=== PATIENT | female | born 1990 | race Caucasian/White ===

== ENCOUNTER 2018-10-05 12:39 | Emergency (ER) | payer MEDICARE, OTHER ==
[~2018-10-05] VITALS: Ht 154.9 cm; Wt 54.3 kg
[2018-10-05 13:17] VITALS: BP 153/94
[2018-10-05] MEDS ORDERED: PANT-47 PO (13:21)
[2018-10-05] MEDS ORDERED: SUCR1ORA12 PO (13:21)
== END 2018-10-05 13:43 | disposition home or self-care (01) ==
LOC: ER 12:42
DX: T18.128A Food in esophagus causing other injury, initial encounter (principal); Z79.899 Other long term (current) drug therapy; X58.XXXA Exposure to other specified factors, initial encounter; Y93.89 Activity, other specified; Y92.89 Other specified places as the place of occurrence of the external cause; Y99.8 Other external cause status
CPT/HCPCS: 99283

== ENCOUNTER 2019-11-18 12:54 | Outpatient (CLI) | payer MEDICARE ==
[~2019-11-18 12:54] MED LIST: PANT-47 PO; SUCR1ORA12 PO
== END 2019-11-18 23:59 | disposition home or self-care (01) ==
LOC: RAD 12:54
PROVIDERS: ATTEND Registered Nurse
DX: R56.9 Unspecified convulsions (principal)
CPT/HCPCS: 95816

== ENCOUNTER 2024-11-10 09:48 | Emergency (ER) | payer MEDICARE, OTHER ==
[~2024-11-10] VITALS: Ht 157.5 cm; Wt 55.4 kg
[2024-11-10] MEDS ORDERED: ketorolac trometh 15mg/ml vial 15 MG/ML ML IM ONE (10:15)
[2024-11-10] MEDS: ketorolac trometh 30MG/ML vial 30 MG/ML VIAL IM ONE (10:33)
[2024-11-10] MEDS ORDERED: METH-798 PO (11:06)
[2024-11-10 11:08] VITALS: BP 132/86; PULSE 78; RESP 16; TEMP 97.7; O2SAT 98
== END 2024-11-10 11:12 | disposition home or self-care (01) ==
LOC: ER 09:49
DX: M54.59 Other low back pain (principal); M41.86 Other forms of scoliosis, lumbar region; Z79.899 Other long term (current) drug therapy; V43.52XA Car driver injured in collision with other type car in traffic accident, initial encounter; Y93.89 Activity, other specified; Y92.89 Other specified places as the place of occurrence of the external cause; Y99.8 Other external cause status
CPT/HCPCS: 72100; 96372; 99283; J1885

== ENCOUNTER 2025-05-01 14:58 | Emergency (ER) | payer MEDICARE, OTHER ==
[~2025-05-01] VITALS: Ht 162.6 cm; Wt 53.0 kg
[~2025-05-01 14:58] MED LIST changes: +METH-798 PO
[2025-05-01 15:01] VITALS: BP 137/77; PULSE 100; RESP 18; TEMP 98.5; O2SAT 99
--- NOTE | 2025-05-01 15:58 | Physician Documentation ---
History of Present Illness ~ Chief Complaint: Cold, cough & congestion Stated Complaint: COUGH Time Seen by MD: 15:11 OK to notify your PCP?: Yes Source: patient Mode of Arrival: POV Exam Limitations: no limitations HPI 34-year-old female presents for antibiotic request. She was seen at [facility] today for allergic reaction to Augmentin for her right ear infection. She was given Benadryl and told to take Benadryl every 6 hours as needed for her rash and itching. They did a chest x-ray, EKG, strep and flu tests which were all normal. They did not prescribe any new antibiotic to help treat her ear infection. She states that she has also had a cough as well as a sore throat. Medication Reconciliation Allergies: Coded Allergies: No Known Allergies (Unverified , 11/10/24) Scheduled Methocarbamol (Methocarbamol), 1 TAB PO Q8H Pantoprazole Sodium (PROTONIX tablet), 1 TAB PO DAILY Sucralfate (Carafate), 10 ML PO QID Past Medical History Past Medical History: No Pertinent History Past Surgical History: noncontributory Drug Use: none Lives In: Home Review of Systems All Other Systems at this time: Reviewed and Negative Physical Exam Vital Signs: RN Vital Signs have been reviewed: Yes, Temperature: 98.5, Source: Temporal, Heart Rate: 100, Respiratory Rate: 18, BP: 137/77, Pulse Oximetry: 99, Weight: 53.000 Oxygen Flow Rate: 0 Pulse Oximetry Reflects: adequate oxygenation Physical Exam General: Alert, no apparent distress. HEENT: PERRL, EOMI, no injection, moist mucous membranes. Right TM has erythema and purulent fluid behind bulging membrane. Left TM clear. Erythema to posterior pharynx Neck: Full range of motion. No cervical lymphadenopathy. Respiratory: Lungs clear, no respiratory distress. Chest: No accessory muscle use. Cardiovascular: Regular rate and rhythm, no murmurs. Gastrointestinal: Soft, nontender, nondistended. Bowels sounds present. Extremities: Normal range of motion, no deformity. Neurologic: Oriented x4. Psychiatric: Normal mood and affect. Skin: Normal color, warm and dry. No edema, no ecchymosis. Progress Results/Orders Reviewed/noted all lab results: Yes Results/Orders Vital Signs 05/01/25 15:01 Temp 98.5 Pulse 100 Resp 18 B/P (MAP) 137/77 Pulse Ox 99 O2 Flow Rate 0 Medical Decision Making Additional info obtained from: old records, family Findings 34-year-old female presents for new antibiotic prescription. I prescribed Ceftin, first dose given here due to her allergy to now amoxicillin being a rash. We discussed there may be a cross sensitivity but as Ceftin as a 3rd generation cephalosporin it is very unlikely. She should follow up with her primary care provider within the next week and return back here for any new or worsening symptoms. You can take Tylenol and/or ibuprofen for pain relief. Differential Dx:Considerations: Include: Allergic rhinitis, Peritonsillar abscess, Pharyngitis-Streptoccal, Pneumonia, Pnuemonitis, Sinusitis Departure Disposition: HOME / SELF CARE / HOMELESS Impression: Primary Impression: Otitis media of left ear treated with amoxicillin in the past 60 days Condition: Stable Discharge Instructions: Otitis Media, Adult, [id number] Additional Instructions: Follow up with your primary care provider and return back here for any new or worsening symptoms. Referrals: NO PRIMARY CARE PROVIDER (PCP) Prescriptions Cefuroxime Axetil (Cefuroxime) 500 Mg Tablet 1 TAB PO Q12H for 7 Days, #14 TAB 0 Refills Prov: DIGNA WRIGHT 05/01/25 Education Educated: Patient, Family Educated regarding: diagnosis, treatment, prognosis, need for follow up Additional Comment Medical Screen Exam This patient recieved a medical screening examination. After reviewing the individual's medical complaints with presenting symptoms and performing an appropriate physical examination, it was determined that no immediate life- threatening emergency medical condition is present. This individual is also not a women having contractions. Signature Scribe Signature: . Attestation: Scribed for Digna Wright by Digna Lei NP . 05/01/25 16:02 Parts of this note were created using [employer] voice recognition software progr am. While efforts were made to correct any mistakes made by this voice recognition software program, nonsensical phrases may remain in this note. In addition, there may be errors and syntax, grammar, content and spelling. DIGNA WRIGHT May 01, 2025 15:58
[2025-05-01] MEDS ORDERED: CEFU500T66 PO (16:01)
== END 2025-05-01 16:24 | disposition home or self-care (01) ==
LOC: ER 14:58
DX: H66.91 Otitis media, unspecified, right ear (principal); Z79.899 Other long term (current) drug therapy
CPT/HCPCS: 99283